=== PATIENT | female | born 1940 ===

== ENCOUNTER 2020-09-12 13:07 | Emergency (ER) | payer OTHER, BC ==
[~2020-09-12] VITALS: Ht 149.9 cm; Wt 64.4 kg
[~2020-09-12 13:07] MED LIST: ATENOLOL50 MG; HYDROCHLOROTH12.5 M1; LIPITOR20 MG
== END 2020-09-12 20:59 | disposition home or self-care (01) ==
LOC: ER 13:07
DX: E86.0 Dehydration (principal); E87.8 Other disorders of electrolyte and fluid balance, not elsewhere classified